=== PATIENT | female | born 1980 | race Caucasian/White ===

== ENCOUNTER → 2023-07-30 08:59 | Outpatient (REF) | payer OTHER, SELFPAY | LOC: WDC 08:59 | PROVIDERS: ATTENDING PHYSICIAN Specialist; FAMILY PHYSICIAN Family Medicine | DX: Z12.31 Encounter for screening mammogram for malignant neoplasm of breast (principal) | CPT/HCPCS: 77063; 77067 ==

== ENCOUNTER 2023-08-23 06:50 | Day surgery (SDC) | payer OTHER, SELFPAY ==
[2023-08-23] VITALS (10 sets, daily range): BP systolic 103–138; BP diastolic 61–80; BMI 24.4
[2023-08-23] MEDS: NORMOSOL-R 1000 IV (10:34)
[2023-08-23 10:44] LABS: HCG, Urine Qualitative Screen Negative
[2023-08-23] MEDS: COMPAZINE 5 MG IV (15:34)
== END 2023-08-23 17:29 | disposition home or self-care (01) ==
LOC: SDS 06:50
PROVIDERS: ATTENDING PHYSICIAN Specialist
DX: N62 Hypertrophy of breast (principal); N60.12 Diffuse cystic mastopathy of left breast; N60.11 Diffuse cystic mastopathy of right breast
CPT/HCPCS: 19318; 88305; 81025

== ENCOUNTER → 2024-05-23 12:53 | Outpatient (REF) | payer OTHER, SELFPAY | LOC: HWRAD 12:53 | PROVIDERS: ATTENDING PHYSICIAN Student in an Organized Health Care Education/Training Program | DX: R10.2 Pelvic and perineal pain (principal) | CPT/HCPCS: 76830; 76856 ==